=== PATIENT | female | born 1965 | race Caucasian/White ===

== ENCOUNTER 2020-10-28 13:08 | Outpatient (CLI) | payer BC ==
--- NOTE | 2020-10-28 14:20 | MMO ---
Right Breast MAMMO Unilat Diag DDI RT+GABBY. CLINICAL HISTORY: Patient is 55 years old and is seen for diagnostic exam and lump or thickening in the right breast at 2 o'clock. The patient has no family history of breast cancer. The patient has no personal history of cancer. The patient has a history of right Ultrasound Guided Core Biopsy in October, - benign. VIEWS: The views performed were: right craniocaudal with tomosynthesis; right mediolateral oblique with tomosynthesis; and right mediolateral with tomosynthesis. FILMS COMPARED: The present examination has been compared to prior imaging studies performed at [facility] on 01/22/2020, at [facility] on 08/23/2010 and 10/28/2020, and at [facility] on 02/07/2005. This study has been interpreted with the assistance of computer-aided detection. MAMMOGRAM FINDINGS: The breast is extremely dense, which may lower the sensitivity of mammography. Finding 1: There are stable benign appearing calcifications seen in the right breast. Finding 2: There is a new mass measuring 13 x 16 x 17 mm with indistinct margins seen in the anterior region of the right breast at 3 o'clock. Solid Findings and recommendations were discussed with the patient prior to leaving the facility. All questions answered. IMPRESSION: FINDING 1: STABLE CALCIFICATIONS IN THE RIGHT BREAST ARE BENIGN. FINDING 2: NEW MASS IN THE RIGHT BREAST IS HIGHLY SUGGESTIVE OF MALIGNANCY. BIOPSY IS RECOMMENDED. THE RESULTS OF THIS EXAM WERE SENT TO THE PATIENT. ACR BI-RADS Category 5 - Highly suggestive of malignancy - appropriate action should be taken MAMMOGRAPHY NOTE: 1. A negative mammogram report should not delay a biopsy if a dominant of clinically suspicious mass is present. 2. Approximately 10% to 15% of breast cancers are not detected by mammography. 3. Adenosis and dense breasts may obscure an underlying neoplasm. Reported by: GOSIA ROTHMAN MD Electonically Signed: [id number]
--- NOTE | 2020-10-28 15:26 | ULT ---
EXAM: RIGHT BREAST ULTRASOUND: 10/28/20 HISTORY: Patient presents with a palpable finding in the 3 o'clock position of the right breast inner subareol ar region. At 3 o'clock, 1 cm from the nipple there is a solid irregularly hypoechoic poorly defined mass with s ome associated architectural distortion. The main portion of this mass measures 1.2 x 1.6 x 1.3 cm i n size, although there appear to be some findings of abnormal hypoechoic density extending from this mass up to 1.1 cm peripheral to the mass worrisome for additional tumor as well. The right axilla ap peared unremarkable. IMPRESSION: Poorly circumscribed solid mass with minimal associated spiculation and at least one finger projectin g from the mass peripherally. BIRADS 5: Highly Suggestive of Malignancy - Appropriate Action Should B e Taken Requires biopsy or surgical treatment Ultrasound guided biopsy is recommended for further assessment. The findings were discussed with the patient who understands and is in agreement. Additionally, findi ngs were discussed with Dr. Christine's nurse, Ladonna who indicated that they would schedule the biopsy fo r next week. POS: OFF
== END 2020-10-28 13:09 | disposition home or self-care (01) ==
LOC: BICMAMMO 13:08
PROVIDERS: ATTEND Obstetrics & Gynecology
DX: R92.8 Other abnormal and inconclusive findings on diagnostic imaging of breast (principal); R92.1 Mammographic calcification found on diagnostic imaging of breast; N63.10 Unspecified lump in the right breast, unspecified quadrant
CPT/HCPCS: G0279

== ENCOUNTER → 2020-11-01 | Day surgery (SDC) | payer BC ==
--- NOTE | 2020-11-01 14:16 | MMO ---
FILMS COMPARED: The present examination has been compared to prior imaging studies performed at [facility] on 01/22/2020, and at [facility] on 08/23/2010 and 10/28/2020. MAMMOGRAM FINDINGS: The breast is extremely dense, which may lower the sensitivity of mammography. There is a new biopsy clip seen in the right breast at 3 o'clock. IMPRESSION: NEW BIOPSY CLIP IN THE RIGHT BREAST IS CONFIRMED UTILIZING POST PROCEDURE MAMMOGRAM. Reported by: COLLIN WASHBURN MD Electonically Signed: [id number]
--- NOTE | 2020-11-01 14:45 | ULT ---
US Breast Bx US Guided History: Breast mass Comparison: None. Findings: Patient was brought to the ultrasound suite. All questions were answered. Informed consent was obtained. Timeout performed. Patient's right breast was prepped and draped in normal sterile fashion. After adequate local anesthe crhistian with lidocaine the right breast mass at 3:00 was accessed. A total of 4 14-gauge cores were obtained. Patient tolerated the procedure well without complication. Impression: Technically successful ultrasound-guided right 3:00 breast mass biopsy.
== END ==
LOC: BICULT 13:02
PROVIDERS: ATTEND Obstetrics & Gynecology
PROC: 0HBT3ZX Excision of Right Breast, Percutaneous Approach, Diagnostic (ICD-10-PCS; principal; 2020-11-01)
DX: C50.811 Malignant neoplasm of overlapping sites of right female breast (principal); Z17.1 Estrogen receptor negative status [ER-]
CPT/HCPCS: 19083; 88305

== ENCOUNTER 2021-04-06 12:32 | Outpatient (CLI) | payer BC | END 2021-04-06 12:33 | disposition home or self-care (01) | LOC: ULT 12:32 | PROVIDERS: ATTEND Internal Medicine Hematology & Oncology | DX: Z51.11 Encounter for antineoplastic chemotherapy (principal); C50.212 Malignant neoplasm of upper-inner quadrant of left female breast; Z79.899 Other long term (current) drug therapy; I07.1 Rheumatic tricuspid insufficiency | CPT/HCPCS: 93306 ==

== ENCOUNTER 2021-07-13 12:47 | Outpatient (CLI) | payer BC | END 2021-07-13 12:48 | disposition home or self-care (01) | LOC: ULT 12:47 | PROVIDERS: ATTEND Internal Medicine Hematology & Oncology | DX: Z51.11 Encounter for antineoplastic chemotherapy (principal); C50.212 Malignant neoplasm of upper-inner quadrant of left female breast; I08.1 Rheumatic disorders of both mitral and tricuspid valves; Z79.899 Other long term (current) drug therapy | CPT/HCPCS: 93306 ==

== ENCOUNTER 2021-10-07 12:30 | Outpatient (CLI) | payer BC | END 2021-10-07 12:31 | disposition home or self-care (01) | LOC: ULT 12:30 | PROVIDERS: ATTEND Internal Medicine Hematology & Oncology | DX: Z51.11 Encounter for antineoplastic chemotherapy (principal); C50.212 Malignant neoplasm of upper-inner quadrant of left female breast | CPT/HCPCS: 93306 ==

== ENCOUNTER 2022-02-23 09:23 | Outpatient (CLI) | payer BC | END 2022-02-23 09:24 | disposition home or self-care (01) | LOC: BICMAMMO 09:23 | PROVIDERS: ATTEND Internal Medicine Hematology & Oncology | DX: Z08 Encounter for follow-up examination after completed treatment for malignant neoplasm (principal); Z85.3 Personal history of malignant neoplasm of breast | CPT/HCPCS: G0279 ==

== ENCOUNTER 2023-09-13 08:56 | Outpatient (CLI) | payer BC | END 2023-09-13 08:57 | disposition home or self-care (01) | LOC: BICMAMMO 08:56 | PROVIDERS: ATTEND Internal Medicine Hematology & Oncology | DX: C50.011 Malignant neoplasm of nipple and areola, right female breast (principal) | CPT/HCPCS: G0279 ==